=== PATIENT | female | born 1955 | race Caucasian/White ===

== ENCOUNTER 2016-09-11 01:07 | Emergency (ER) | payer MEDICAID ==
[~2016-09-11] VITALS: Ht 172.7 cm; Wt 75.0 kg
[2016-09-11 01:10] VITALS: BP 137/73; PULSE 87; RESP 16; TEMP 97.8; O2SAT 97
[2016-09-11 01:29] VITALS: TEMP 98.2
[2016-09-11] MEDS ORDERED: SODIUM CHLOR 0.9% 1000 ML INJ 1,000 ML IV SCH (01:47)
[2016-09-11] MEDS ORDERED: LIDOCAINE 1%/EPINEPHrine 1:100,000 SOLN 20 ML VIAL INFIL ONE (02:00)
[2016-09-11] MEDS ORDERED: DIPHTH/TETANUS/ACEL PERTUSSIS (BOOSTER) 0.5 ML VIAL/PFS IM ONE (02:00)
[2016-09-11] MEDS ORDERED: ceFAZolin 2 GM PREMIX 50 ML IV ONE (02:00)
[2016-09-11 02:04] VITALS: O2SAT 99
--- NOTE | 2016-09-11 02:28 | RADRPT ---
EXAM DATE/TIME: 09/11/2016 02:19 [facility] COMPARISON: No previous studies available for comparison. INDICATIONS : Fall, laceration to scalp. ETOH. RADIATION DOSE: 32.78 CTDIvol (mGy) MEDICAL HISTORY : None SURGICAL HISTORY : None. ENCOUNTER: Initial ACUITY: 1 day PAIN SCALE: 2/10 LOCATION: cranial TECHNIQUE: Multiple contiguous axial images were obtained of the head. Using automated exposure control and adj ustment of the mA and/or kV according to patient size, radiation dose was kept as low as reasonably a chievable to obtain optimal diagnostic quality images. FINDINGS: CEREBRUM: The ventricles are normal for age. No evidence of midline shift, mass lesion, hemorrhage or acute in farction. No extra-axial fluid collections are seen. POSTERIOR FOSSA: The cerebellum and brainstem are intact. The 4th ventricle is midline. The cerebellopontine angle i s unremarkable. EXTRACRANIAL: The visualized portion of the orbits is intact. SKULL: The calvaria is intact. No evidence of skull fracture. CONCLUSION: No acute disease. Bradley Fortune MD on September 11, 2016 at 2:26 Board Certified Radiologist. This report was verified electronically.
--- NOTE | 2016-09-11 02:41 | RADRPT ---
EXAM DATE/TIME: 09/11/2016 02:19 [facility] COMPARISON: No previous studies available for comparison. INDICATIONS : Fall, laceration to scalp. RADIATION DOSE: 19.55 CTDIvol (mGy) MEDICAL HISTORY : None SURGICAL HISTORY : None. ENCOUNTER: Initial ACUITY: 1 day PAIN SCALE: 2/10 LOCATION: neck TECHNIQUE: Volumetric scanning of the cervical spine was performed. Multiplanar reconstructions in the sagittal, coronal and oblique axial planes were performed. Using automated exposure control and adjustment o f the mA and/or kV according to patient size, radiation dose was kept as low as reasonably achievable to obtain optimal diagnostic quality images. FINDINGS: No prevertebral soft tissue swelling or compression deformity. Prominent anterior osteophyte formatio n is seen greatest at C4-C6. There is fusion across the left C2 to 3 facet joint and right C3-4 facet joint with moderate multilevel facet hypertrophic changes. Severe disc space narrowing at C5-6 and C 6-7 with mild endplate sclerosis and multilevel osteophytosis. Uncovertebral hypertrophy is noted at C5-6 and C6-7 with moderate severity. Severe foraminal stenosis at C3-4 on the right, C4-5 T5-T6 on t he right secondary to uncovertebral hypertrophy. CONCLUSION: No fractures are seen. 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 Bradley Fortune MD on September 11, 2016 at 2:38 Board Certified Radiologist. This report was verified electronically.
--- NOTE | 2016-09-11 04:07 | PD ---
Physical Exam Exam Limitations: Intoxication Date Seen by Provider: Sep 11, 2016 Time Seen by Provider: 04:04 Data Data Last Documented VS Vital Signs Date Time Temp Pulse Resp B/P Pulse Ox O2 Delivery O2 Flow Rate FiO2 09/11/16 02:04 99 Room Air 09/11/16 01:29 98.2 09/11/16 01:10 87 16 137/[address] Brain W/O Iv Contrast(Rout) (09/11/16 01:35) Ct Cerv Spine W/O Contrast (09/11/16 01:35) Complete Blood Count With Diff (09/11/16 01:47) Comprehensive Metabolic Panel (09/11/16 01:47) Prothrombin Time / Inr (Pt) (09/11/16 01:47) Act Partial Throm Time (Ptt) (09/11/16 01:47) Lipase (09/11/16 01:47) Urinalysis - C+S If Indicated (09/11/16 01:47) Iv Access Insert/Monitor (09/11/16 01:47) Ecg Monitoring (09/11/16 01:47) Oximetry (09/11/16 01:47) Drug Screen, Random Urine (09/11/16 01:47) Alcohol (Ethanol) (09/11/16 01:47) Cefazolin 2 Gm Premix (Ancef 2 Gm Premix (09/11/16 02:00) Isti-Zmd-Xkilmw (Booster) Inj (Boostrix (09/11/16 02:00) Sodium Chlor 0.9% 1000 Ml Inj (Ns 1000 M (09/11/16 01:47) Lidocai-Epi 1%-1:100,000 Inj (Xylocaine- (09/11/16 02:00) MDM Medical Record Reviewed: Yes Supervised Visit with JUAN: Yes Interpretation(s) Last [address] 09/11/16134 Signed Impressions: Service Date/Time: Sunday, September 11, 2016 02:19 - CONCLUSION: No acute disease. Bradley Fortune MD Cervical Spine CT 09/11/16134 Signed Impressions: Service Date/Time: Sunday, September 11, 2016 02:19 - CONCLUSION: No fractures are seen. 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 Bradley Fortune MD Differential Diagnosis MDM: High Differential diagnoses: Fracture, sprain, strain, dislocation, contusion, neurovascular injury, intoxication Narrative Course Patient's lacerations closed with lauren CT of the head and neck are negative. Procedures Procedure Narrative LACERATION LOCATION: Right posterior occiput LENGTH: 8 cm NUMBER OF STITCHES/LAUREN: 13 REPAIR: The area of the laceration was prepped with Betadine and sterilely draped. The laceration was infiltrated with 1% lidocaine with epinephrine. The wound was copiously irrigated and explored without evidence of foreign body , tendon injury or neurovascular injury. The wound was closed using lauren. This was a simple single layer repair. A sterile dressing was applied. The patient was advised to keep the dressing clean and dry. Patient tolerated the procedure well. Diagnosis Primary Impression: Scalp laceration Qualified Code: S01.01XA - Scalp laceration, initial encounter Additional Impressions: Head contusion Qualified Code: S00.03XA - Contusion of scalp, initial encounter Alcohol intoxication Qualified Code: F10.129 - Alcohol intoxication, with unspecified complication Patient Instructions: General Instructions Additional Instruction: Rest. Head precautions. Elevation. No driving or operating any heavy machinery under the influence of alcohol. Tylenol and Advil for pain. Daily wound care with soap, water, Neosporin. Sutures out in 10 days. Return to the ER if any problems. Med/Other Pt SpecificInfo: Wound Care Disposition: 01 DISCHARGE HOME Condition: Stable Derrek Coleman Sep 11, 2016 04:07
--- NOTE | 2016-09-11 04:15 | PD ---
HPI Chief Complaint: Fall Time Seen by Provider: 01:21 Travel History International Travel<30 days: No Contact w/Intl Traveler<30days: No Traveled to known affect area: No History of Present Illness HPI The patient is a 60 year old female who presents to the [facility] emergency department with a history of reportedly falling off of a bar stool prior to arrival. The patient struck the back of her head on a concrete floor and had approximately a 90 second to 2 minute loss of consciousness according to her significant other at the bedside. Ambulance services were called, however the patient refused transport. The patient was noted to have a 10 cm laceration to the back of her head. Bleeding was controlled and her significant other brought her in. The patient on arrival reports that she has had 6 drinks this evening. The patient denies having any new neck pain, paresthesias, weakness in her extremities, loss of sensation to her extremities , chest pain, chest pressure, shortness of breath, abdominal pain, vomiting, diarrhea, urinary symptoms, or other neurologic symptoms. The patient is unsure when her tetanus was last updated. [facility] Past Medical History Narrative Medical The patient's past medical history is reportedly none. Medical History: Denies Significant Hx Past Surgical History Narrative Surgical The patient's past surgical history is reportedly none. Other Surgery: Yes Social History Alcohol Use: Yes (reportedly drinks every other day, however usually as much today) Tobacco Use: No Substance Use: No Allergies-Medications (Allergen,Severity, Reaction): Coded Allergies: No Known Allergies (Unverified , 09/11/16) Narrative Medication She denies taking any medications. Review of Systems Except as stated in HPI: all other systems reviewed are Neg General / Constitutional: No: Fever Eyes: No: Visual changes HENT: Positive: Headaches, No: Neck Stiffness, Neck Pain Cardiovascular: No: Chest Pain or Discomfort Respiratory: No: Shortness of Breath Gastrointestinal: No: Nausea, Vomiting, Diarrhea, Abdominal Pain Genitourinary: No: Dysuria Musculoskeletal: No: Pain Skin: No Rash Neurologic: No: Weakness, Focal Abnormalities, Change in Mentation, Slurred Speech, Sensory Disturbance Psychiatric: No: Depression Endocrine: No: Polydipsia Hematologic/Lymphatic: No: Easy Bruising Physical Exam Narrative General: The patient is a well-developed well-nourished female in no acute distress. Head and Neck exam: Head is normocephalic, with evidence of trauma to the posterior occipital area with a linear laceration that is approximately 10 cm with bleeding that is controlled. There is no step-off or crepitus. Eyes: EOMI, pupils are equal round and reactive to light. Nose: Midline septum with pink mucous membranes Mouth: Dentition unremarkable. Moist mucus membranes. Posterior oropharynx is not erythematous. No tonsillar hypertrophy. Uvula midline. Airway patent. Neck: No palpable lymphadenopathy. No nuchal rigidity. No thyromegaly. Cardiovascular: Regular rate and rhythm without murmurs, gallops, or rubs. Lungs: Clear to auscultation bilaterally. No wheezes, rhonchi, or rales. Abdomen: Soft, without tenderness to palpation in all 4 quadrants of the abdomen. No guarding, rebound, or rigidity. Normal bowel sounds are audible. Extremities: No clubbing, cyanosis, or edema. 2+ pulses in all 4 extremities. No calf tenderness on palpation. No extremity deformity or crepitus on palpation. No extremity pain with full range of motion. Back: No spinous process tenderness to palpation. No costovertebral angle tenderness to palpation. No step-off or crepitus. No erythema or ecchymosis. Neurologic Exam: Cranial nerves 2-12 were intact on exam. Strength is 5/5 in all 4 extremities. No sensory deficits noted. The patient is oriented to person, place, time, and situation. Has slightly slurred speech and an odor of alcohol about her. Data Data Last Documented VS Vital Signs Date Time Temp Pulse Resp B/P Pulse Ox O2 Delivery O2 Flow Rate FiO2 09/11/16 02:04 99 Room Air 09/11/16 01:29 98.2 09/11/16 01:10 87 16 137/[address] Brain W/O Iv Contrast(Rout) (09/11/16 01:35) Ct Cerv Spine W/O Contrast (09/11/16 01:35) Iv Access Insert/Monitor (09/11/16 01:47) Ecg Monitoring (09/11/16 01:47) Oximetry (09/11/16 01:47) Cefazolin 2 Gm Premix (Ancef 2 Gm Premix (09/11/16 02:00) Oynb-Khf-Bmpdio (Booster) Inj (Boostrix (09/11/16 02:00) Sodium Chlor 0.9% 1000 Ml Inj (Ns 1000 M (09/11/16 01:47) Lidocai-Epi 1%-1:100,000 Inj (Xylocaine- (09/11/16 02:00) MDM Medical Decision Making Medical Screen Exam Complete: Yes Emergency Medical Condition: Yes Medical Record Reviewed: No Interpretation(s) Last Impressions Head CT 09/11/16134 Signed Impressions: Service Date/Time: Sunday, September 11, 2016 02:19 - CONCLUSION: No acute disease. Bradley Fortune MD Cervical Spine CT 09/11/16134 Signed Impressions: Service Date/Time: Sunday, September 11, 2016 02:19 - CONCLUSION: No fractures are seen. 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 Bradley Fortune MD Differential Diagnosis Intracranial hemorrhage, versus cervical spine injury Narrative Course During the course of the patients emergency department visit, the patients history, examination, and differential diagnosis were reviewed with the patient. The patient had IV access written to be obtained obtained and blood work ordered to be sent for analysis, however the patient refused IV access and laboratory studies. The patient was adamant that she did not want IV access obtained and blood work sent for analysis. The plan to proceed with administration of an update of her tetanus. She was agreeable with plan to repair her laceration after CT scan of the head and neck was done. The patient reports that she does not have insurance and does not feel that laboratory studies or other imaging studies are necessary. Radiology studies were reviewed and remarkable for a CT scan of the brain was read as negative by the reading radiologist, CT scan of the C-spine shows no fractures that are evident, moderate stenosis at C5-C6 secondary to a diffuse disc osteophyte complex, no other acute abnormality. Derrek Banda the physician records management assistant was consultative for wound appears irrigation and repair. The patient is resting comfortably and feels better, is alert and in no distress. The patients results and examination findings were discussed with patient. The repeat examination is unremarkable and benign. The history, exam, diagnostic testing, and current condition do not suggest any significant pathology to warrant further testing, continued ED treatment, admission, or surgical evaluation at this point. The vital signs have been stable. The patient does not have uncontrollable pain, intractable vomiting, or other significant symptoms. The patient's condition is stable and appropriate for discharge. The patient will pursue further outpatient evaluation with a primary care physician or other designated or consulting physician as indicated in the discharge instructions. The patient expressed understanding and was agreeable with this plan. Diagnosis Primary Impression: Scalp laceration Qualified Code: S01.01XA - Scalp laceration, initial encounter Additional Impression: Head contusion Qualified Code: S00.03XA - Contusion of scalp, initial encounter Referrals: Primary Care Physician 2 days Patient Instructions: General Instructions, Head Injury (ED), Laceration (ED) Departure Forms: Tests/Procedures Additional Instructions: Rest. Head precautions. Elevation. No driving or operating any heavy machinery under the influence of alcohol. Tylenol and Advil for pain. Daily wound care with soap, water, Neosporin. Sutures out in 10 days. Return to the ER if any problems. Disposition: 01 DISCHARGE HOME Condition: Stable Pema Lambert MD Sep 11, 2016 04:15
== END 2016-09-11 04:41 | disposition home or self-care (01) ==
LOC: NEPE 01:07
DX: S01.01XA Laceration without foreign body of scalp, initial encounter (principal); Z23 Encounter for immunization; S00.93XA Contusion of unspecified part of head, initial encounter; F10.129 Alcohol abuse with intoxication, unspecified; W08.XXXA Fall from other furniture, initial encounter; W17.89XA Other fall from one level to another, initial encounter; Y93.9 Activity, unspecified; Y92.9 Unspecified place or not applicable; Y99.9 Unspecified external cause status
CPT/HCPCS: 12004; 70450; 72125; 90471; 90715